=== PATIENT | female | born 1950 | race Caucasian/White ===

== ENCOUNTER → 2016-06-07 | Outpatient (CLI) | payer MEDICARE, OTHER | END | disposition home or self-care (01) | LOC: GMAB 11:04 | PROVIDERS: ATTEND Family Medicine | DX: I10 Essential (primary) hypertension (principal) ==

== ENCOUNTER → 2017-02-05 | Outpatient (CLI) | payer MEDICARE, OTHER ==
--- NOTE | 2017-02-06 16:02 | MAM ---
EXAM DESCRIPTION: 3D Screening BILATERAL : Digital Mammography. CLINICAL HISTORY: 66 years Female SCREENING . No complaints. No family history of breast cancer. Postmenopausal ablation therapy. No HRT. COMPARISON: 2-D digital screening bilateral studies 09/01/2012 and 11/01/2009. Digital diagnostic left breast workup with ultrasound 11/10/2009.. No prior reports available. TECHNIQUE: Bilateral CC and MLO projection full-field images, 3-D tomosynthesis digital mammographic technique. Also bilateral synthesized CC/ MLO full-field images. CAD not utilized. FINDINGS: The breast parenchymal density pattern is: Scattered areas of fibroglandular density. No skin thickening or nipple retraction bilateral solitary microcalcifications. Bilateral intramammary lymph nodes. No focal, stellate mass or density, focal asymmetry , and no suspicious microcalcifications bilaterally. Stable mammograms compared to prior studies, taking into account differences in mammographic technique IMPRESSION: BI-RADS CATEGORY: 2 - BENIGN FINDINGS. FOLLOW UP: Routine digital bilateral screening, one year interval from January 2017. Written communication explaining the IMPRESSION and follow-up, will be mailed to the patient and referring health care provider. According to the [employer], yearly mammograms are recommended starting at age 40 and continuing as long as a woman is in good health. Any breast change noted on a breast self-exam should be reported promptly to the patient's healthcare provider. Breast MRI is recommended for women with an approximately 20-25% or greater lifetime risk of breast cancer, including women with a strong family history of breast or ovarian cancer and women who have been treated for Hodgkin's disease. A negative mammographic report should not delay tissue diagnosis in patients with significant clinical history or physical findings. Extremely dense breast tissue limits the sensitivity of digital mammography. Electronically signed by: Josue Crowe MD 02/06/2017 4:01 PM CDT
== END | disposition home or self-care (01) ==
LOC: MAMMO 08:57
PROVIDERS: ATTEND Family Medicine
DX: Z12.31 Encounter for screening mammogram for malignant neoplasm of breast (principal)
CPT/HCPCS: 77063; G0202

== ENCOUNTER → 2017-02-27 | Outpatient (CLI) | payer MEDICARE, OTHER ==
--- NOTE | 2017-02-28 07:00 | RAD ---
EXAM DESCRIPTION: Shoulder,Right 2 or More Views CLINICAL HISTORY: PAIN IN RIGHT SHOULDER COMPARISON: None. FINDINGS/IMPRESSION: 3 views of the right shoulder. No acute fracture or dislocation. Widening of the acromioclavicular joint. Correlation for history of surgery recommended. If no surgery has been performed this would represent a grade 2 AC separation. No fracture of the visualized ribs. No right-sided pneumothorax. Normal osseous mineralization. Electronically signed by: Steve Hutton 02/28/2017 6:58 AM [facility]
== END | disposition home or self-care (01) ==
LOC: RAD 09:53
PROVIDERS: ATTEND Orthopaedic Surgery
DX: M25.511 Pain in right shoulder (principal)

== ENCOUNTER → 2017-03-04 | Outpatient (CLI) | payer MEDICARE, OTHER ==
--- NOTE | 2017-03-05 09:28 | MRI ---
Study: MRI of the Right Shoulder. Indication: [employer]ATOR [employer]NDR[employer] Technique: Multiplanar, multi sequence MRI of the right shoulder was obtained without intravenous contrast. Comparison: None. Findings: Prior distal clavicular resection and subacromial decompression suspected. Small to moderate volume subacromial/subdeltoid bursal fluid. Supraspinatus and infraspinatus tendinosis noted with full-thickness tear at the critical zone of the anterior half of the supraspinatus tendon. Involved area measures approximately 11 mm AP by 10 mm transverse. No significant tendon retraction. Subscapularis tendinosis with low-grade interstitial tearing throughout the superior half of the tendon insertion. Teres minor tendon intact. Grade 1/2 fatty infiltration and mild atrophy supraspinatus muscle belly. Long head biceps tendinosis and longitudinal fissuring noted without transection. Circumferential labral truncation/degeneration. Mild glenohumeral joint osteoarthritis and tiny joint effusion. No acute fracture. Impression: Supraspinatus and infraspinatus tendinosis with full-thickness tear at the critical zone of the anterior half of the supraspinatus tendon. Subscapularis tendinosis with low-grade interstitial tearing throughout the superior half of the tendon. Grade 1/2 fatty infiltration and mild atrophy supraspinatus muscle belly. Long head biceps tendinosis and longitudinal fissuring. Circumferential labral truncation and degeneration. Mild glenohumeral joint osteoarthritis. Distal clavicular resection and subacromial decompression suspected. Electronically signed by: Ino Dorsey MD 03/05/2017 9:27 AM [facility]
== END | disposition home or self-care (01) ==
LOC: MRI 06:53
PROVIDERS: ATTEND Orthopaedic Surgery
DX: M75.101 Unspecified rotator cuff tear or rupture of right shoulder, not specified as traumatic (principal)

== ENCOUNTER → 2017-07-22 | Outpatient (CLI) | payer MEDICARE, OTHER | END | disposition home or self-care (01) | LOC: GMAB 11:04 | PROVIDERS: ATTEND Family Medicine | DX: I10 Essential (primary) hypertension (principal) ==

== ENCOUNTER → 2018-07-28 | Outpatient (CLI) | payer MEDICARE, OTHER | LOC: GMAE 10:32 | PROVIDERS: ATTEND Family Medicine | DX: I10 Essential (primary) hypertension (principal) ==

== ENCOUNTER → 2019-05-28 | Outpatient (CLI) | payer MEDICARE, OTHER ==
--- NOTE | 2019-05-28 15:58 | RAD ---
EXAM DESCRIPTION: Knee,Right Complete CLINICAL HISTORY: 68 years Female, PAIN IN RIGHT KNEE COMPARISON: None. Findings: Four views/radiographs Osteopenia. Severe lateral compartment narrowing. Moderate medial compartment narrowing. No significant joint effusion. No acute fracture or dislocation. IMPRESSION: Right knee osteoarthritis. No evidence of acute osseous abnormality. Electronically signed by: Jw Chao MD 05/28/2019 3:57 PM [employer]
--- NOTE | 2019-05-28 15:59 | RAD ---
EXAM DESCRIPTION: Pelvis CLINICAL HISTORY: 68 years Female, PAIN IN RIGHT HIP COMPARISON: None. FINDINGS: Single AP view the pelvis shows no displaced pelvic fracture. The hip joint spaces are well-maintained. The pubic symphysis and sacroiliac joints are unremarkable. Mild degenerative calcifications arise from both greater trochanters. Pelvic fluid is. Tiny metallic foreign body projecting over the left ilium, likely not acute. IMPRESSION: Mild enthesopathic calcifications adjacent to the greater trochanters bilaterally, otherwise unremarkable exam. Electronically signed by: Jovan Chawla MD 05/28/2019 3:58 PM [employer]
== END ==
LOC: RAD 10:04
PROVIDERS: ATTEND Orthopaedic Surgery
DX: M76.891 Other specified enthesopathies of right lower limb, excluding foot (principal); M76.892 Other specified enthesopathies of left lower limb, excluding foot; M17.11 Unilateral primary osteoarthritis, right knee

== ENCOUNTER → 2019-07-30 | Outpatient (CLI) | payer MEDICARE, OTHER | LOC: GMAE 11:21 | PROVIDERS: ATTEND Family Medicine | DX: I10 Essential (primary) hypertension (principal) ==

== ENCOUNTER → 2019-09-28 | Outpatient (CLI) | payer MEDICARE, OTHER ==
--- NOTE | 2019-09-28 11:27 | RAD ---
EXAM DESCRIPTION: Pelvis CLINICAL HISTORY: 69 years Female, PAIN IN LEFT HIP COMPARISON: Previous x-ray pelvis May 28, 2019 FINDINGS: Previous study May 28, 2019. Multiple phleboliths in the pelvis. Surgical clips overlie the right sacrum. Degenerative narrowing of the lower lumbar disc spaces. Sacrum and SI joints appear intact. Degenerative changes of the pubic symphysis. Bowel anastomotic staple line in the left lower pelvis. Mild degenerative narrowing of the hip joints. IMPRESSION: Negative for fracture or lytic lesion. Electronically signed by: Avery Seals MD 09/28/2019 11:25 AM CDT
--- NOTE | 2019-09-28 11:31 | RAD ---
EXAM DESCRIPTION: Knee x-ray,Left Complete four views CLINICAL HISTORY: 69 years, Female, PAIN IN LEFT KNEE COMPARISON: None TECHNIQUE: Four x-ray views of the left knee standing FINDINGS: No fracture or dislocation. Bones appear normally mineralized with normal trabecular pattern. Narrowed appearance of medial and lateral compartments on frontal view. Calcification anterior to the medial compartment appears benign with cluster of grapes appearance not typical of articular loose body. Moderate spurring of the tibial spines with mild lateral joint line spurring Lateral view shows normal position of the patella. No patellar spurring or enthesopathy. Minimal suprapatellar knee joint fluid. Normal contour of quadriceps and patellar tendons. Posterior fabella incidentally noted. No abnormal patellar tilt or subluxation on patellar sunrise view. Rarefaction of the medial aspect of the patella of uncertain nature. Spurring of the medial margin of the femoral trochlea and lateral margin of the patella. Standing 45 degree flexion view shows articular surface irregularity of the lateral femoral condyle with sclerosis and eburnation of the lateral femoral condyle and lateral tibial plateau. IMPRESSION: Degenerative changes as described. Electronically signed by: Avery Seals MD 09/28/2019 11:29 AM CDT
== END ==
LOC: RAD 09:14
PROVIDERS: ATTEND Orthopaedic Surgery
DX: M17.12 Unilateral primary osteoarthritis, left knee (principal); M25.552 Pain in left hip